=== PATIENT | male | born 1945 | race Caucasian/White ===

== ENCOUNTER → 2016-10-13 | Outpatient (CLI) | payer MEDICARE, OTHER ==
[~2016-10-13] MED LIST: CPAP INH; DELTASONE5 MG PO; FISH OIL 1,2001 EACH PO; LIPITOR20 M1 PO; LISINOPRIL-HCT1 EAC1 PO; NORVASC2.5 MG PO; PLAQUENIL200 MG PO; RESTORIL15 MG PO; TOPROL XL 5050 MG PO; TRAZODONE HCL50 MG PO; VOLTAREN75 MG PO
[2016-10-13 15:53] LABS: CPK 66 IU/L (35-332)
== END ==
LOC: LNHI 15:32
PROVIDERS: Internal Medicine Cardiovascular Disease
DX: I20.8 Other forms of angina pectoris (principal)

== ENCOUNTER → 2016-10-23 | Outpatient (CLI) | payer MEDICARE, OTHER ==
--- NOTE | ~2016-10-23 | ESTC ---
Cardiac Perfusion Imaging Demographics Patient Name SEGUNDO Sousa Gender Male Patient Number [id number] Race Visit Number [id number] Ethnicity [employer] ID Room Number Accession Number [id number] Height 70 inches Date of 1945 Weight 216 pounds A MD Interpreting Vamshi Waters Date of study 10/23/2016 Physician MD Supervising /LOPEZP STEPHON Technologist Marilyn River Ordering Physician Margret Sousa MD automotive technician Stress ECG Reading Jennifer Granados APRN Nurse Deepak Kline RN Physician Procedure Admit Source:Other. Procedure Type: Nuclear Stress Test:Pharmacological, Lexiscan, Cardiolite Stress Test Procedure Start time: 10/23/2016 08:40 Indications: Chest pain. Risk Factors The patient risk factors include:treated hypercholesterolemia and treated hypertension. Conclusions Impression ECG portion of lexiscan stress test is clinically negative for ischemia by diagnostic criteria. Myocardial perfusion imaging shows inferior wall matched defect suggestive of attenuation artifact. No convincing evidence of ischemia. Overall left ventricular systolic function was normal without regional wall motion abnormalities. Calculated LEVF is 65% and TID ratio is 1.03. Stress Protocols Resting ECG Atrial paced Pre-stress physical exam: Patient assessed by Hubert RODRIGUEZ prior to testing. Chest - CTA Cardio - RRR, S1, S2 Predicted HR: 150 bpm HR response: Appropriate BP response: Appropriate Reason for termination:Infusion complete ECG Findings No ECG changes suggestive of ischemia. Arrhythmias No rhythm abnormality. Symptoms Shortness of breath. Lightheaded Complications Procedure complication: None. Stress Interpretation Appropriate hemodynamic response to Lexiscan. No significant ST-T wave changes with Lexiscan. ECG portion is negative for ischemia by diagnostic criteria. Will correlate with nuclear images. Imaging Results Applied corrections - Motion correction applied High risk findings Summed scores - Summed stress score: 14 - Summed rest score: 12 - Summed difference score: 2 Stress ejection Ejection fraction:65 % EDV :85 ml ESV :30 ml Stroke volume :55 ml LV mass :123 gr Imaging Protocols Rest Stress Isotope:Tc99m Sestamibi IV Isotope: Tc99m Sestamibi IV Isotope dose:15.6 mCi Isotope dose:46.9 mCi Date:10/23/2016 07:30 Date:10/23/2016 09:07 Technique: SPECT Technique: Gated Supine SPECT Supine Scan Time:45-60 minutes post Scan Time:15-30 minutes post injection injection Procedure Medications - Regadenoson (Lexiscan) 0.4 mg IV over 10-15 sec. I.V. 0.4 mg. Medical History Admission Data Admission date: 10/23/2016 Admission Time: 07:19 Hospital Status: Outpatient. Signatures dtt: VIKRAM RUFFIN dtd: 10/23/16 0840 Physician Self Edit
== END | disposition disaster alternative care site (69) ==
LOC: GRAD 07:19
DX: R07.9 Chest pain, unspecified (principal); I10 Essential (primary) hypertension; E78.00 Pure hypercholesterolemia, unspecified
CPT/HCPCS: A9500; J0280; J2785

== ENCOUNTER 2016-10-31 07:55 | Outpatient (CLI) | payer MEDICARE, OTHER ==
[~2016-10-31] VITALS: Ht 179.1 cm; Wt 93.8 kg
--- NOTE | ~2016-10-31 | CATH ---
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 30% LAD- 50% distal Circ- 30% RCA Diagnostic Recommendations Medical treatment. Start statins. Procedure Description The patient was brought to the diagnostic cardiac catheterization-EP laboratory in the fasting, non-sedated state. Informed consent was obtained in the written and verbal form after the risks and benefits were explained. The patient had no further questions and agreed to proceed. The planned puncture-incision site(s) were shaved and prepped with ChloraPrep and draped in the usual sterile manner. Conscious sedation and pain control medications were delivered by a registered nurse under physician guidance. Surface ECG rhythm, blood pressure measurement, and pulse oximetry were monitored throughout the procedure. Arterial access. The access site was infiltrated with lidocaine. The vessel was entered with the Seldinger technique. A sheath was advanced into the vessel and used for catheter placement. Selective left coronary angiography. A catheter was advanced into the left coronary vessel ostium under Fluoroscopic guidance. Contrast was injected by hand. Images were obtained in multiple projections. Selective right coronary angiography. A catheter was advanced into the right coronary vessel ostium under fluoroscopic guidance. Contrast was injected by hand. Images were obtained in multiple projections. Left heart catheterization. A catheter was advanced across the aortic valve to the left ventricle under fluoroscopic guidance. Resting hemodynamics were obtained. Arterial artery hemostasis was achieved. The patient was transferred to a regular nursing floor via cart accompanied by a nurse. The patient left the laboratory in stable condition. Diagnostic Cath Status: Elective Procedure Procedure Type Diagnostic procedure:Angiography:, Coronary Angios w/[facility] Indications: Shortness of breath and Chest heaviness. The procedure was explained in detail to the patient. Risks, complications and alternative treatments were reviewed. Written consent was obtained. Medications Reviewed with Patient prior to Procedure. Angiographic Findings Dominance: Right Cardiac Arteries and Lesion Findings LMCA: Normal (0% Stenosis).Patent. LAD: Diag patent. Lesion on Prox LAD: Ostial.20% stenosis . Lesion on Mid LAD: Mid subsection.30% stenosis . LCx: Lesion on Dist CX: Distal subsection.50% stenosis . Lesion on 1st Ob Gila: Ostial.20% stenosis . RCA: Lesion on Dist RCA: Distal subsection.30% stenosis . Coronary Tree Procedure Data Procedure Date Date: 10/31/2016Start: 10:40 AMEnd: 10:58 AM Entry Locations - Retrograde Percutaneous access was performed through the Right Radial artery (Primary location). A 6 Fr sheath was inserted. Hemostasis was successfully obtained using Mechanical Compression. Closure Comments: 13 ml's of air in radial band places by Mark Zendejas. Procedure Medications Order and Administration + + +-------+-------+ !Time !Medication !Dosage !Route ! + + +-------+-------+ !10/31/2016 !Versed !1 mg !I.V. ! !10:40 AM ! ! ! ! + + +-------+-------+ !10/31/2016 !PAE Radial Cocktail: Heparin 5000 units, ! !I.A. ! !10:42 AM !Nitroglycerin 200mcg, Verapamil 3 mg ! ! ! ! !(ACC_3) ! ! ! + + +-------+-------+ !10/31/2016 !Fentanyl !25 mcg !I.V. ! !10:43 AM ! ! ! ! + + +-------+-------+ Devices Used - A6 Fr. BS JR 4 Diag. Catheterwas used for:Right coronary angiography. - A6 Fr. BS JL 3.5 Diag. Catheterwas used for:Left coronary angiography. Contrast Material - Isovue 41837 ml Fluoroscopy Time: Diagnostic: 3:18 minutes. Total: 3:18 minutes. Fluoroscopy Dose: Diagnostic: 1143 mGy. Total: 1143 mGy. Estimated Blood Loss: 10 ml. Medical History Performed Procedures and Imaging Results - Stress testing with SPECT MPIwas performed. Results were: Negative. History of Disease + + + + !Diagnosis !Date !Comments ! + + + + !Hypertension ! ! ! + + + + Allergies - Other:(lon). Risk Factors The patient risk factors include:treated hypercholesterolemia, treated hypertension, last creatinine: 1 mg/dl, creatinine clearance: 91.19 ml/min and dyslipidemia. Admission Data Admission Date: 10/31/2016 Admission Time: 07:55 AM Admit Source: Other Insurance Payors: Medicare. Admission Medications + +------+------+ + + + + !Medication !Dosage!Times !Last !Last !Administered !Comments ! ! ! !Per !Delivery !Delivery ! ! ! ! ! !Day !Date !Time ! ! ! + +------+------+ + + + + !GUERA ! ! ! ! !Yes ! ! !Inhibitor ! ! ! ! ! ! ! !(any) ! ! ! ! ! ! ! + +------+------+ + + + + !Beta Trevin! ! ! ! !Yes ! ! !(any) ! ! ! ! ! ! ! + +------+------+ + + + + !Aspirin ! ! ! ! !Yes ! ! !(any) ! ! ! ! ! ! ! + +------+------+ + + + + Clinical Evaluation Leading to Procedure - The patient's CAD presentation was assessed as: Unstable angina. - Anti-anginal medications were prescribed during the past two weeks. The medications are: Beta Blockers and Ca channel Blockers. Snapshots Hemodynamics Condition: Rest O2 Consumption: Estimated: 237.37Heart Rate: 60 bpm Pressures (mmHg) +-----+ + !Site !Pressure ! +-----+ + !LV !118/3 ,8 ! +-----+ + !LV !121/1 ,8 ! +-----+ + !AO !127/74 (98) ! +-----+ + !LV !125/1 ,7 ! +-----+ + !AO !126/74 (99) ! +-----+ + Valve Gradients and Areas + +---------+---------+---------+ +---------+ + !Valve !Peak !Mean !Area !Index !Flow !Source ! + +---------+---------+---------+ +---------+ + !Aortic !1 !0 ! ! ! ! ! + +---------+---------+---------+ +---------+ + !Aortic !1 !0 ! ! ! ! ! + +---------+---------+---------+ +---------+ + Shunts Oxygen Values O2 Capacity 221.68 O2 Consumption 237.37 Discharge Data Discharge Date: 10/31/2016 Hospital Status: Outpatient Signatures dtt: Ubaldo Oswald dtd: 10/31/16 1040 Physician Self Edit
[~2016-10-31 07:55] MED LIST changes: -LIPITOR20 M1 PO
[2016-10-31 08:34] LABS: BASOPHIL # 0.1 K/uL (0.0-0.2); BASOPHIL % 1.3 %; EOSINOPHIL # 0.3 K/uL (0.0-0.5); EOSINOPHIL % 4.9 %; HEMOGLOBIN 16.3 g/dL (11.0-16.0); IMMATURE GRANULOCYTE % 0.3 %; LYMPHOCYTE # 1.4 K/uL (0.8-4.0); LYMPHOCYTE % 20.8 %; MCH 32.7 pg (27.0-34.0); MCHC 35.4 gm/dL (32.0-36.5); MCV 92.2 fl (83.0-98.0); MONOCYTE # 0.7 K/uL (0.0-1.0); MONOCYTE % 9.5 %; MPV 11.8 fl (9.4-12.4); NEUTROPHIL # (ANC) 4.3 K/uL (1.4-9.0); NEUTROPHIL % 63.2 %; NRBC % 0 /100WBC (0-0.00); PLATELET COUNT 137 K/uL (150-450); RBC 4.99 M/uL (3.50-5.50); RDW-CV 12.8 % (11.9-14.6); WBC 6.9 K/uL (4.0-11.0)
[2016-10-31 08:43] LABS: INR - (THERAPEUTIC) 1.17 (0.92-1.07); PROTIME 12.3 SECONDS (9.8-11.4); PTT 26 SECONDS (25-32)
[2016-10-31 08:50] LABS: ALBUMIN 3.8 gm/dL (3.5-5.0); ALK PHOS 49 IU/L (33-138); ALT 31 IU/L (12-78); ANION GAP 11.7 (10.0-19.0); AST 19 IU/L (10-40); BLOOD UREA NITROGEN 23 mg/dL (6-24); CALCIUM 8.6 mg/dL (8.5-10.5); CHLORIDE 108 mMol/L (96-110); CO2 25 mMol/L (22-32); POTASSIUM 3.7 mMol/L (3.7-5.1); SODIUM 141 mMol/L (135-145); TOTAL BILIRUBIN 0.8 mg/dL (0.0-1.5); TOTAL PROTEIN 6.8 g/dL (6.0-8.4)
[2016-10-31 08:52] LABS: ESTIMATED GFR (MDRD EQUATION) > 60
[2016-10-31] MEDS ORDERED: LIPITOR20 M1 PO (12:59)
== END 2016-10-31 14:35 | disposition disaster alternative care site (69) ==
LOC: GCAT 07:55 → GPCU 07:55 → GPOC 08:00 → GCAT 14:35
PROVIDERS: Internal Medicine Cardiovascular Disease
PROC: B2111ZZ Fluoroscopy of Multiple Coronary Arteries using Low Osmolar Contrast (ICD-10-PCS; principal; 2016-10-31)
PROC: 4A023N7 Measurement of Cardiac Sampling and Pressure, Left Heart, Percutaneous Approach (ICD-10-PCS; principal; 2016-10-31)
PROC: B2151ZZ Fluoroscopy of Left Heart using Low Osmolar Contrast (ICD-10-PCS; principal; 2016-10-31)
DX: I25.119 Atherosclerotic heart disease of native coronary artery with unspecified angina pectoris (principal); I10 Essential (primary) hypertension; E66.09 Other obesity due to excess calories; Z95.0 Presence of cardiac pacemaker; G47.33 Obstructive sleep apnea (adult) (pediatric)
CPT/HCPCS: C1894; J1644; J2001; J2250; J3010; J7030

== ENCOUNTER → 2016-12-14 | Outpatient (CLI) | payer MEDICARE, OTHER ==
[~2016-12-14] MED LIST changes: +LIPITOR20 M1 PO
--- NOTE | ~2016-12-14 | PUL ---
PATIENT'S NAME: [facility] AGE: 71 Y [address] ROOM: [place], [place] [address] LOCATION: [facility] ADMIT DATE: 12/14/2016 Pulmonary DISCHARGE DATE: FAMILY PHYSICIAN: Jose Antonio Tavarez MD ATTENDING PHYSICIAN: GERI GOTTLIEB NAME OF PROCEDURE: Sleep study PROCEDURE DATE: 12/14/16 TECH: ISELA Roche TEST #: [facility]# [phone] TECHNICAL PARAMETERS: The patient was studied using International 10/20 measuring system. While the patient was studied, there was continuous monitoring of EEG (8 leads), EOG (2 leads), EKG (3 leads), submental EMG (3 leads), tibial (4 leads), respiratory inductive plethysmography (RIP) for thoracic and abdominal effort, oral and nasal airflow with a thermocouple and pressure transducer, and oximetry. The safety technician also performed visual and auditory observations noting things like body position, patient's status, breath sounds, artifact, snoring level and patient comments. Continuous sound was monitored using a 2-way speaker system and video monitoring was performed using an infrared camera. Review of the entire study was performed epoch by epoch utilizing a single epoch and multiple epoch capability sleep system. MEDICAL HISTORY: The patient is a 71-year-old gentleman with daytime sleepiness and snoring. He is on CPAP at home but has persistent symptoms. SLEEP STAGE SUMMARY: The patient was studied for 506 minutes of which he slept 373 minutes. He fell asleep in 8 minutes and slept for 74% of the night. Sleep architecture revealed a decline in slow wave and REM sleep. RESPIRATORY SUMMARY: Oxygen saturations ranged from 87-94% and were below 88% for fewer than 5 minutes. CPAP was initiated at 8 cm and maintained throughout the study. The apnea/hypopnea index on 8 cm of CPAP was less than 1 event per hour. EKG SUMMARY: Average heart rate 61 beats per minute. No dysrhythmias were noted. LIMB MOVEMENT SUMMARY: Frequent periodic limb movements were noted. Given the patient's symptoms these are probably clinically relevant. Limb movement index was 114 events per hour. Limb movement with arousal was 8.8 events per hour. PATIENT'S NAME: [facility] AGE: 71 Y [address] ROOM: [place], [place] [address] LOCATION: [facility] ADMIT DATE: 12/14/2016 Pulmonary DISCHARGE DATE: FAMILY PHYSICIAN: Jose Antonio Tavarez MD ATTENDING PHYSICIAN: GERI GOTTLIEB IMPRESSION: 1. Obstructive sleep apnea which appears to be adequately treated on 8 cm of CPAP. 2. Probable periodic limb movement disorder which may warrant treatment given the patient's symptoms. PLAN: Patient will receive results from the ordering provider. ALBA GARCIA MD /[id number] dtt: 01/02/17 0756 , Alba Garcia dtd: 12/19/16 1534
== END | disposition disaster alternative care site (69) ==
LOC: GSLP 20:16
DX: G47.33 Obstructive sleep apnea (adult) (pediatric) (principal)